=== PATIENT | male | born 1950 | race Caucasian/White ===

== ENCOUNTER 2020-12-31 02:42 | Inpatient (IN) ==
[2021-01-01] MEDS ORDERED: Naloxone 0.4 MG/ML INJ IVP PRN (04:36)
[2021-01-01 05:30] LABS: Basophils % 0.5 %; Eosinophils # 0.2 K/mcL (0.0-0.6); Eosinophils % 2.5 %; Hematocrit 24.9 % (37.5-50.1); Immature Granulocytes % 0.6 % (0-4); Mean Corpuscular HGB Conc 32.1 g/dL (31.6-35.5); Mean Corpuscular Hemoglobin 30.5 pg (28.0-33.3); Mean Platelet Volume 10.8 fL (9.4-12.4); Monocytes # 0.7 K/mcL (0.0-1.3); Monocytes % 10.3 %; Neutrophils # 4.6 K/mcL (1.6-8.9); Platelet Count 117 K/mcL (140-400); Red Blood Count 2.62 M/mcL (4.19-5.50); Red Cell Distribution Width 13.5 % (11.5-14.5); Segmented Neutrophils % 71.1 %; White Blood Count 6.4 K/mcL (4.3-11.1)
[2021-01-01 05:55] LABS: Albumin/Globulin Ratio 1.4 (1.1-2.2); Calcium 7.8 mg/dL (8.6-10.3); Globulin 2.2 g/dL (2.4-3.5); Potassium 4.7 mEq/L (3.5-5.1); Total Protein 5.2 g/dL (6.4-8.9); Troponin I 0.38 ng/mL (< 0.04)
[2021-01-01 10:56] LABS: Hematocrit 24.7 % (37.5-50.1)
[2021-01-01] MEDS ORDERED: Ondansetron 4 MG/2 ML VIAL IVP PRN (11:55)
[2021-01-01] MEDS ORDERED: Perflutren Lipid Microsphere 1.3 ML in 0.9 % Sodium Chloride 8.7 ML IVP PRN (14:19)
[2021-01-01] MEDS: Pantoprazole 40 MG VIAL IVP SCH (17:47)
[2021-01-01 18:27] LABS: Hematocrit 25.1 % (37.5-50.1); Hemoglobin 8.3 g/dL (12.9-16.9)
[2021-01-02 01:20] LABS: Basophils % 0.3 %; Eosinophils # 0.2 K/mcL (0.0-0.6); Eosinophils % 2.4 %; Hematocrit 27.3 % (37.5-50.1); Hemoglobin 8.7 g/dL (12.9-16.9); Immature Granulocytes % 0.5 % (0-4); Lymphocytes # 1.1 K/mcL (0.6-4.6); Lymphocytes % 16.1 %; Mean Corpuscular HGB Conc 31.9 g/dL (31.6-35.5); Mean Corpuscular Volume 97.2 fL (83.0-100.0); Mean Platelet Volume 10.9 fL (9.4-12.4); Monocytes # 0.7 K/mcL (0.0-1.3); Monocytes % 10.5 %; Neutrophils # 4.6 K/mcL (1.6-8.9); Platelet Count 117 K/mcL (140-400); Red Blood Count 2.81 M/mcL (4.19-5.50); Red Cell Distribution Width 13.6 % (11.5-14.5); Segmented Neutrophils % 70.2 %; White Blood Count 6.6 K/mcL (4.3-11.1)
[2021-01-02 01:45] LABS: Calcium 8.3 mg/dL (8.6-10.3); Potassium 4.4 mEq/L (3.5-5.1)
[2021-01-02] MEDS: Pantoprazole 40 MG VIAL IVP SCH ×2 (06:48→18:14)
[2021-01-02] MEDS ORDERED: Acetaminophen 325 MG TABLET PO PRN (09:09)
[2021-01-02] MEDS ORDERED: SODIUM BICARBONATE IVC SCH (12:30)
[2021-01-02] MEDS ORDERED: SODIUM CHLORIDE 0.45% IVC SCH (12:30)
[2021-01-02] MEDS ORDERED: Sodium Bicarbonate 150 MEQ in 0.45 % Sodium Chloride 1,000 ML IVC SCH (13:00)
[2021-01-02 21:55] LABS: Bilirubin,Urine Negative (Negative); Blood,Urine Negative (Negative); Clarity,Urine Clear (Clear); Color,Urine Light-Yellow (Yellow); Glucose,Urine (UA) Normal (Normal); Ketones,Urine Negative (Negative); Leukocyte Esterase,Urine Negative (Negative); Nitrite,Urine Negative (Negative); Protein,Urine Negative (Neg-Trace); Specific Gravity,Urine 1.017 (1.010-1.025); Urobilinogen,Urine Normal (Normal)
[2021-01-03 01:43] LABS: Basophils % 0.4 %; Eosinophils # 0.2 K/mcL (0.0-0.6); Eosinophils % 2.5 %; Hematocrit 28.9 % (37.5-50.1); Hemoglobin 9.6 g/dL (12.9-16.9); Immature Granulocytes % 0.4 % (0-4); Lymphocytes # 1.2 K/mcL (0.6-4.6); Lymphocytes % 15.2 %; Mean Corpuscular HGB Conc 33.2 g/dL (31.6-35.5); Mean Corpuscular Hemoglobin 31.3 pg (28.0-33.3); Mean Corpuscular Volume 94.1 fL (83.0-100.0); Mean Platelet Volume 10.7 fL (9.4-12.4); Monocytes % 12.7 %; Neutrophils # 5.5 K/mcL (1.6-8.9); Platelet Count 160 K/mcL (140-400); Red Blood Count 3.07 M/mcL (4.19-5.50); Red Cell Distribution Width 13.3 % (11.5-14.5); Segmented Neutrophils % 68.8 %
[2021-01-03 02:12] LABS: Calcium 8.5 mg/dL (8.6-10.3); Phosphorous 2.8 mg/dL (2.7-4.5); Potassium 4.2 mEq/L (3.5-5.1); Uric Acid 6.3 mg/dL (2.3-7.6)
[2021-01-03] MEDS: Pantoprazole 40 MG VIAL IVP SCH ×2 (05:13→20:24)
[2021-01-03] MEDS ORDERED: *HR* Etomidate 40 MG/20 ML VIAL IVP ONE ×2 (15:56→16:26)
[2021-01-03 20:21] VITALS: BP 109/86
== END 2021-01-03 21:23 | disposition home or self-care (01) | DRG 682 ==
LOC: 2NNU → OBSVTOIN 01-01 02:52 → SUATTDRO 01-01 02:52 → ICNU 01-01 03:17 → 2NNU 01-01 21:51
PROVIDERS: ADMIT Internal Medicine; ATTEND Internal Medicine
PROC: ENDOEBX (2021-01-03 13:45)